=== PATIENT | female | born 1990 | race Caucasian/White ===

== ENCOUNTER → 2017-06-13 10:25 | Outpatient (CLI) | payer OTHER, SELFPAY | LOC: MFPLAB 10:26 | PROVIDERS: Family Provider Family Medicine; PCP Family Medicine; Visit Provider Family Medicine | DX: L65.9 Nonscarring hair loss, unspecified (principal) | CPT/HCPCS: 36415; 84443 ==

== ENCOUNTER 2017-10-25 14:19 | Emergency (ER) | payer OTHER, SELFPAY ==
[2017-10-25 14:20] VITALS: BP 116/68; PULSE 127; RESP 18; TEMP 36.9; O2SAT 100; BMI 23.0
--- NOTE | 2017-10-25 14:31 | RAD_ITS ---
STUDY: X-RAY CHEST REASON FOR EXAM: Female, 26 years old. Cough, shortness of breath, congestion. TECHNIQUE: PA and lateral chest COMPARISON: None. FINDINGS: The lungs are clear and expanded. Normal cardiomediastinal silhouette, lazarus and pleural margins. No acute osseous or upper abdominal process. RAD/Chest PA and Lateral IMPRESSION: No acute cardiopulmonary process. Electronically Signed: Andrea Franklin, at 15:26 EDT Tel , Service support ,
--- NOTE | 2017-10-25 14:32 | ED.VISSUMM ---
- ER Visit Summary Date of Service: 10/25/17 Chief Complaint: [] Nose harsh cough sore throat, exposed to construction dust History of Present Illness: The patient is a 26 F [] about 2 days she has had a runny nose a harsh cough, she indicates at work they are remodeling the building and she has been exposed to quite a bit of construction type dust and debris she was seen in urgent care center and sent to the emergency department. She reports the cough is harsh she has a sore throat, she feels as if she has fire in her throat, she has had no fevers, chest pain or abdominal pain numbness weakness, no skin rashes, she has no past history, she denies history of IA PE or DVT. Her has similar symptoms. She has no history of asthma COPD or pulmonary elements, she was not exposed anyone it has been ill Physical Examination: [] Her vital signs are within normal range her heart rate is 110 her nose is running thin rhinorrhea, quite profusely, bilaterally the throat is red there is no exudate stridor or drooling phonation is normal the lungs are clear the heart tones are unremarkable abdomen soft nontender upper lower extremity unremarkable skin is unremarkable Test Results: [] Emergency Department Course and Treatment: [] She clearly on exam has copious rhinorrhea she has mild redness to her throat she has been coughing quite a bit and exposed to this construction dust, this time she is treated with aerosols, Zofran, Afrin chest x-ray p.o. fluids Her chest x-ray is unremarkable, on reevaluation she is feeling much better the aerosols are helped her her cough is much improved her rhinorrhea has resolved she is able to take p.o. fluids without difficulty she wants to go home explained her she should try to avoid this construction dust by wearing a mask but she states she constantly talks on the phone, she will be discharged on Proventil inhaler, Flonase nasal spray follow with her doctor the next few days and return for change in symptoms Treatment Plan: [] Disposition: [] Home stable Impression: [] URI harsh cough, exposure to construction dust This note was generated with [employer] software. It may contain incorrect words, spelling, and punctuation that were not noted in review of the chart prior to signing ED Disposition - Plan for ED Patient: Chief Complaint: Cough Referrals: Ady Pantoja MD [Primary Care Provider] -
[2017-10-25 14:40] VITALS: PULSE 95; RESP 22
[2017-10-25] MEDS: Ipratropium/Albuterol Sulfate 3 ML AMPUL.NEB INHALATION (14:40)
[2017-10-25] MEDS: Oxymetazoline 0.05% 1 SPRAY SPRAY.BTL 2 SPRAY NASAL (14:47)
[2017-10-25] MEDS: Ondansetron ODT 4 MG Tablet PO (14:47)
--- NOTE | 2017-10-25 15:32 | DCINST.ED_ITS ---
ED Disposition - Plan for ED Patient: Chief Complaint: Cough Instructions: ED Reactive Airway Disease, ED Upper Resp Infec No Abx Tx Prescriptions: Albuterol Inhaler [Ventolin Hfa] 2 puff INHALATION Q4H PRN PRN #1 inhaler PRN Reason: Wheezing Fluticasone 0.05% [Flonase Nasal [place]] 1 spray NASAL DAILY #1 nasal.sry Referrals: Ady Pantoja MD [Primary Care Provider] -
[2017-10-25 15:44] VITALS: BP 121/62; PULSE 75; RESP 14; O2SAT 96
== END 2017-10-25 15:46 | disposition home or self-care (01) ==
LOC: ED 15:06
PROVIDERS: Emergency Provider Emergency Medicine; Family Provider Family Medicine; PCP Family Medicine
DX: J06.9 Acute upper respiratory infection, unspecified (principal); R05 Cough; Z57.2 Occupational exposure to dust
CPT/HCPCS: 71046; 94640; 99283

== ENCOUNTER → 2018-01-24 16:46 | Outpatient (CLI) | payer OTHER, SELFPAY | PROVIDERS: Family Provider Family Medicine; PCP Family Medicine; Visit Provider Family Medicine | DX: N39.0 Urinary tract infection, site not specified (principal) | CPT/HCPCS: 87086; 87088; 87186 ==

== ENCOUNTER → 2018-10-21 13:42 | Outpatient (CLI) | payer OTHER, SELFPAY ==
[2018-10-21 08:18] VITALS: BMI 23.0
[2018-10-21 14:20] LABS: Mucous, Urine 0 SEEN /hpf (<or=2+); Red Blood Cells-Urine 0 SEEN /hpf (0-5)
[2018-10-21 14:37] LABS: Glucose, Dipstick Normal (Normal); Ketone-Dipstick Negative (Negative); Leukocyte Esterase-Dipstick Negative /ul (Negative); Nitrite-Dipstick Positive (Negative); Occult Blood-Urine 10 /ul (Negative); Protein-Dipstick 15 mg/dl (Negative); Urine Clarity Sl. Cloudy (Clear); Urine Urobilinogen 8 mg/dl (Normal)
[2018-10-21 14:38] LABS: Color, Urine SEE COMMENT BELOW (Yellow); Urine Bilirubin Dipstick 6 mg/dL (Negative)
[2018-10-21 14:43] LABS: Bacteria 3+ /hpf (None Seen); Squamous Epithelial Cells - UA 0-5 SEEN /hpf (5-10); White Blood Cells 25-50 SEEN /hpf (0-5)
== END ==
LOC: LABSPEC 13:44
PROVIDERS: Family Provider Family Medicine; PCP Family Medicine; Referring Provider Physician Assistant Surgical; Visit Provider Physician Assistant Surgical
DX: N30.01 Acute cystitis with hematuria (principal)
CPT/HCPCS: 81001; 87077; 87086; 87088; 87186

== ENCOUNTER → 2019-04-24 08:56 | Outpatient (CLI) | payer OTHER, SELFPAY ==
[2018-10-21 08:18] VITALS: BMI 23.0
== END ==
LOC: LABSPEC 08:58
PROVIDERS: PCP Family Medicine; Referring Provider Family Medicine; Visit Provider Family Medicine
DX: R30.0 Dysuria (principal)
CPT/HCPCS: 87086; 87088; 87186

== ENCOUNTER → 2020-01-14 14:13 | Outpatient (CLI) | payer OTHER, SELFPAY ==
[2018-10-21 08:18] VITALS: BMI 23.0
--- NOTE | 2020-01-14 14:16 | US_ITS ---
ACR Level 3 findings have been noted. An addendum which confirms receipt of the report will follow. HISTORY: recurring uti's ADDITIONAL HISTORY: None provided. COMPARISON: CT 05/01/2014 TECHNIQUE: Ultrasound of the kidneys and bladder performed with grayscale and color Doppler imaging. FINDINGS: RIGHT KIDNEY: 10.1 x 4.1 x 5.0 cm LEFT KIDNEY: 10.9 x 5.0 x 4.5 cm ECHOGENICITY: Mildly heterogeneous cortical echogenicity, greater on the right than the left. HYDRONEPHROSIS: None. CALCULI: None. RENAL LESIONS: None. BLADDER: Unremarkable. URETERAL JETS: Visualized US/Kidney and Bladder IMPRESSION: No hydronephrosis. Mildly heterogeneous cortical echogenicity may be artifactual or could indicate pyelonephritis. Correlate with urinalysis. at [id number] Reported and signed by: Angela Lu MD Electronically Signed: Angela Lu MD at 7:51 EDT Tel , Service support ,
== END ==
PROVIDERS: PCP Family Medicine; Referring Provider Urology; Visit Provider Urology
DX: N39.0 Urinary tract infection, site not specified (principal)
CPT/HCPCS: 76770

== ENCOUNTER 2021-04-28 15:51 | Outpatient (CLI) | payer OTHER, SELFPAY ==
[2021-05-03 13:12] LABS: HPV APTIMA, High Risk Negative (Negative)
== END 2021-04-28 23:59 | disposition home or self-care (01) ==
LOC: LABSPEC 15:52
PROVIDERS: PCP Family Medicine; Visit Provider Obstetrics & Gynecology
DX: Z12.4 Encounter for screening for malignant neoplasm of cervix (principal)
CPT/HCPCS: 87624; 88175; G0145

== ENCOUNTER → 2024-08-12 | Outpatient (CLI) | payer OTHER, SELFPAY ==
--- NOTE | 2024-08-12 11:01 | RAD_ITS ---
EXAM: XR Right Tibia and Fibula, 2 Views CLINICAL INDICATION: R MID GÓMEZ PAIN. RUNNER TECHNIQUE: Frontal and lateral views of the right tibia and fibula. COMPARISON: No relevant prior studies available. FINDINGS: BONES/JOINTS: Unremarkable. No acute fracture. No dislocation. SOFT TISSUES: Unremarkable. No radiopaque foreign body. RAD/Tibia & Fibula 2 Views IMPRESSION: No acute fracture. Reading [facility]
== END | disposition home or self-care (01) ==
LOC: MTRAD 10:56
PROVIDERS: PCP Family Medicine; Referring Provider Family Medicine; Visit Provider Family Medicine
DX: M79.604 Pain in right leg (principal)
CPT/HCPCS: 73590